=== PATIENT | female | born 1955 | race Caucasian/White ===

== ENCOUNTER 2020-11-24 12:54 | Emergency (ER) | payer OTHER ==
[~2020-11-24] VITALS: Ht 170.2 cm; Wt 56.7 kg
[2020-11-24 13:46] LABS: Basophils # (auto) 0.1 10 ^3/uL (0-0.2); Basophils % (auto) 1.2 % (0.0-2.0); Eosinophils # (auto) 0 10 ^3/uL (0-0.8); Hematocrit 40.1 % (36.0-46.0); Hemoglobin 13.9 g/dL (12.2-16.2); Lymphocytes # (auto) 1.7 10 ^3/uL (0.4-5.4); Lymphocytes % (auto) 28.1 % (10.0-50.0); Mean Corpuscular Hemoglobin 30.4 pg (28.0-32.0); Mean Corpuscular Hgb Conc. 34.7 g/dL (32.0-36.0); Mean Corpuscular Volume 87.5 fL (80.0-100.0); Monocytes # (auto) 0.3 10 ^3/uL (0-1.3); Monocytes % (auto) 5.1 % (0.0-12.0); Neutrophils % (auto) 65.6 % (37.0-80.0); Red Blood Cells 4.58 10^6/uL (4.0-5.20); Red Cell Distribution Width 16.6 % (11.8-14.3)
[2020-11-24 14:29] LABS: Albumin 4.4 g/dL (3.4-5.0); Anion Gap 10 (5-15); Blood Urea Nitrogen 16 mg/dL (7-18); Calcium 9.1 mg/dL (8.5-10.1); Carbon Dioxide 26 mmol/L (21-32); Chloride 95 mmol/L (98-107); Glucose 116 mg/dL (74-106); Potassium 3.8 mmol/L (3.5-5.1); Sodium 131 mmol/L (136-145)
[2020-11-24 14:34] LABS: Alanine Aminotransferase 196 U/L (13-56); Alkaline Phosphatase 70 U/L (45-117); Aspartate Aminotransferase 147 U/L (15-37); BUN/Creatinine Ratio 14.4; Bilirubin, Total 0.6 mg/dL (0.2-1.0); GFR African American 64 mL/min; GFR Non-African American 53 mL/min; Total Protein 8.8 g/dL (6.4-8.2)
[2020-11-24 15:47] VITALS: BP 112/70
[2020-11-24 15:51] LABS: Urine Bacteria NONE SEEN /hpf (None Seen); Urine Blood Negative /uL (Negative); Urine Specific Gravity 1.005 (1.001-1.035); Urine WBC <1 /hpf (0 - 5)
== END 2020-11-24 15:56 | disposition home or self-care (01) ==
LOC: ER 12:54
DX: R55 Syncope and collapse (principal); Z20.822 Contact with and (suspected) exposure to COVID-19
CPT/HCPCS: 36415; 70450; 71045; 80053; 81001; 84484; 85025; 87426; 93005

== ENCOUNTER 2020-11-27 18:06 | Emergency (ER) | payer OTHER ==
[~2020-11-27] VITALS: Ht 170.2 cm; Wt 56.7 kg
[2020-11-27 19:30] LABS: Basophils # (auto) 0.1 10 ^3/uL (0-0.2); Basophils % (auto) 1.8 % (0.0-2.0); Eosinophils # (auto) 0 10 ^3/uL (0-0.8); Hematocrit 39.7 % (36.0-46.0); Hemoglobin 13.6 g/dL (12.2-16.2); Lymphocytes # (auto) 1.6 10 ^3/uL (0.4-5.4); Lymphocytes % (auto) 29.1 % (10.0-50.0); Mean Corpuscular Hemoglobin 29.9 pg (28.0-32.0); Mean Corpuscular Hgb Conc. 34.2 g/dL (32.0-36.0); Mean Corpuscular Volume 87.5 fL (80.0-100.0); Monocytes # (auto) 0.4 10 ^3/uL (0-1.3); Monocytes % (auto) 7.6 % (0.0-12.0); Neutrophils # (auto) 3.5 10 ^3/uL (1.6-8.6); Neutrophils % (auto) 61.5 % (37.0-80.0); Nucleated Red Blood Cells % 0.1 %; Platelet Count (auto) 231 10^3/uL (140-450); Red Blood Cells 4.54 10^6/uL (4.0-5.20); Red Cell Distribution Width 16.8 % (11.8-14.3); White Blood Cell 5.6 10^3/uL (4.4-10.8)
[2020-11-27 19:46] LABS: Anion Gap 4 (5-15); Blood Urea Nitrogen 16 mg/dL (7-18); Carbon Dioxide 29 mmol/L (21-32); Chloride 99 mmol/L (98-107); Glucose 89 mg/dL (74-106); Sodium 132 mmol/L (136-145)
[2020-11-27 19:53] LABS: Alanine Aminotransferase 111 U/L (13-56); Alkaline Phosphatase 60 U/L (45-117); Aspartate Aminotransferase 68 U/L (15-37); BUN/Creatinine Ratio 14.8; Bilirubin, Total 0.5 mg/dL (0.2-1.0); GFR African American 66 mL/min; GFR Non-African American 54 mL/min; Total Protein 7.9 g/dL (6.4-8.2)
[2020-11-27 21:16] VITALS: BP 148/82
== END 2020-11-27 22:07 | disposition designated cancer center or children's hospital (05) ==
LOC: ER 18:06
DX: R53.1 Weakness (principal); R00.2 Palpitations
CPT/HCPCS: 36415; 71045; 80053; 84484; 85025; 93005